=== PATIENT | male | born 1955 | race Caucasian/White ===

== ENCOUNTER → 2019-10-29 14:07 | Outpatient (CLI) | payer OTHER, SELFPAY ==
--- NOTE | 2019-10-29 14:26 | DI.CT.S_ITS ---
PROCEDURE: CT SINUS SCREEN WO CON INDICATIONS: Chronic sinusitis, unspecified TECHNIQUE: Noncontrast 3.0 mm axial images acquired from the frontal sinuses to the mid-sella, with coronal and sagittal reformats. For radiation dose reduction, the following was used: automated exposure control, adjustment of mA and/or kV according to patient size. COMPARISON: None. FINDINGS: Image quality: Excellent. Sinuses: Surgical changes reflecting previous maxillary antrectomy are noted. There is bilateral mild maxillary and scattered ethmoid mucosal thickening. Minimal to mild bilateral sphenoid as well as mild frontal sinus mucosal thickening is present. Miscellaneous: Visualized intra-orbital contents are normal. No cristino bullosa or paradoxical turbinate curvature. Middle turbinates have been removed. No nasal septal deviation. IMPRESSION: 1. Postsurgical sinus surgery with minimal to mild irwin sinus mucosal thickening as above. No fluid levels are identified. Dictated by: Pam Schaffer M.D. on 10/29/2019 at 17:29 Approved by: Pam Schaffer M.D. on 10/29/2019 at 17:30
== END ==
PROVIDERS: PCP Student in an Organized Health Care Education/Training Program; Visit Provider Student in an Organized Health Care Education/Training Program
DX: J32.8 Other chronic sinusitis (principal)
CPT/HCPCS: 70486

== ENCOUNTER 2020-08-08 09:59 | Inpatient (IN) | payer OTHER, SELFPAY ==
[2020-08-08] VITALS (12 sets, daily range): BP systolic 118–185; BP diastolic 73–105; PULSE 38–53; RESP 12–23; TEMP 36.1–37; O2SAT 93–100; BMI 25.2; BMI 25.0
--- NOTE | 2020-08-08 | DI.US.S_ITS ---
PROCEDURE: US CAROTID DOPPLER BI INDICATIONS: ACUTE CVA, LEFT HEMIANOPSIA TECHNIQUE: Color and pulse Doppler interrogation was performed of both carotid systems, with image documentation and velocity measurements. COMPARISON: None. FINDINGS: Stenosis calculations are based on SRU (Society of Radiologists in Ultrasound) criteria. Right side: Brachial blood pressure: 137/92 mm Hg. Common carotid artery peak systolic velocity: 79 cm/sec. Internal carotid artery peak systolic velocity: 59 cm/sec. Internal carotid artery end diastolic velocity: 22 cm/sec. External carotid artery peak systolic velocity: 60 cm/sec. ICA/CCA peak systolic ratio: 0.7. Mcmillan scale imaging description: Mild atherosclerotic plaque at the right carotid bulb. Percent internal carotid artery stenosis: No significant stenosis. Vertebral artery: Flow direction is antegrade. Left side: Brachial blood pressure: 136/85 mm Hg. Common carotid artery peak systolic velocity: 90 cm/sec. Internal carotid artery peak systolic velocity: 59 cm/sec. Internal carotid artery end diastolic velocity: 16 cm/sec. External carotid artery peak systolic velocity: 66 cm/sec. ICA/CCA peak systolic ratio: 0.7. Mcmillan scale imaging description: No significant atherosclerotic plaque. Percent internal carotid artery stenosis: No significant stenosis. Vertebral artery: Flow direction is antegrade. IMPRESSION: No hemodynamically significant stenosis. Very mild atherosclerotic plaque at the right carotid bulb. Dictated by: Fletcher Toussaint M.D. on 08/08/2020 at 17:20 Approved by: Fletcher Toussaint M.D. on 08/08/2020 at 17:23
--- NOTE | 2020-08-08 | DI.ECHO.S_ITS ---
[facility] +---------+ : : [address] : : : : [id number] : : : : Phone: [phone] Echocardiogram Report + + :Name: PAKO BURTON Study Date: 08/08/2020 Height: 70 in : :[facility] Weight: 176 lb : : Gender: Male BSA: 2.0 m2 : :: 1955 Age: 65 yrs BP: 148/95 mmHg: :Reason For Study: CVA : : Performed By: Shan Almanza : :Referring: NIDIA STRINGER : + + Interpretation Summary 1) Normal left ventricular size, thickness, wall motion, and systolic function (EF 60-65%). 2) Normal right ventricular size and function. 3) No significant valvular abnormalities. 4) Injection of contrast documented an interatrial shunt. 5) No prior Echo available for comparison. Procedure: A two-dimensional transthoracic echocardiogram with color flow and Doppler was performed. The study quality was technically good. There is no prior echocardiogram noted for this patient. A saline contrast injection was performed to assess for cardiac shunting. The patient was in normal sinus rhythm during the exam. Left Ventricle: The left ventricle is normal in size. There is normal left ventricular wall thickness. The ejection fraction is estimated to be 60-65%. There are no focal wall motion abnormalities. Right Ventricle: The right ventricle is normal in size and function. Atria: The left atrium is moderately dilated. Right atrial size is normal. Injection of contrast documented an interatrial shunt. Mitral Valve: The mitral valve is normal. There is trace mitral regurgitation. Aortic Valve: The aortic valve is trileaflet. The aortic valve opens well. There is no aortic valve stenosis. No aortic regurgitation is present. Tricuspid Valve: The tricuspid valve is normal in structure and function. There is trace tricuspid regurgitation. The right ventricular systolic pressure is estimated to be at least 20 mmHg based on an estimated right atrial pressure of 3 mm Hg. Pulmonic Valve: The pulmonic valve is normal in structure and function. There is trace pulmonic regurgitation. Great Vessels: The aortic root is normal size. The dimensions of the ascending aorta are normal. The pulmonary artery is normal size. The IVC is of normal diameter and collapses greater than 50% with a sniff. This suggests a low right atrial pressure of 3 mm Hg. Pericardium/ Pleura There is no pericardial effusion. There is no pleural effusion. MMode/2D Measurements & Calculations LVIDd: 5.1 cm LVOT diam: 2.3 cm LVIDs: 2.9 cm Ao root diam: 3.6 cm FS: 42.4 % asc Aorta Diam: 3.3 cm EPSS: 0.75 cm Ao Arch Diam (Prox Trans): 3.1 cm IVSd: 0.90 cm LVPWd: 0.77 cm LV aranda. diameter/BSA (cm/m^2): 2.6 LV sys. diameter/BSA (cm/m^2): 1.5 LA dimension: 3.4 cm RA long axis: 4.6 cm LA A2 area: 22.6 cm2 RA area: 14.2 cm2 LA A4 area: 19.4 cm2 RA vol: 37.2 ml LA length (vol): 5.3 cm RA : 18.8 ml/m2 LA vol: 70.2 ml IVC diam: 0.96 cm LA vol index: 35.5 ml/m2 TAPSE: 2.0 cm Doppler Measurements & Calculations Ao V2 max: 152.1 cm/sec LVOT Max Vicente: 94.1 cm/sec Ao V2 mean: 114.8 cm/sec LV V1 max P.5 mmHg Ao max P.3 mmHg LV V1 VTI: 20.6 cm Ao mean P.6 mmHg RICKY(I,D): 2.6 cm2 Ao V2 VTI: 34.5 cm RICKY(V,D): 2.7 cm2 sev ratio: 0.60 RICKY indexed to BSA (cm^2/m^2): 1.3 MV E max vicente: 42.7 cm/sec TR max vicente: 207.0 cm/sec MV A max vicente: 60.7 cm/sec TR max P.1 mmHg MV E/A: 0.70 PA V2 max: 81.9 cm/sec Med Peak E' Vicente: 5.2 cm/sec PA V2 mean: 59.9 cm/sec E/E' med: 8.3 PA mean P.6 mmHg Lat Peak E' Vicente: 7.9 cm/sec PA pr(Accel): 8.8 mmHg E/E' lat: 5.4 E/e' average: 6.8 MV dec time: 0.29 sec SV(LVOT): 88.2 ml Reading Physician:05:14 PM
--- NOTE | 2020-08-08 10:08 | DI.CT.S_ITS ---
PROCEDURE: CT HEAD/BRAIN WO CON INDICATIONS: left visual changes yesterday TECHNIQUE: Noncontrast 4.5 mm thick angled axial sections acquired from the foramen magnum to the vertex, with coronal and sagittal reformats. For radiation dose reduction, the following was used: automated exposure control, adjustment of mA and/or kV according to patient size. COMPARISON: [facility], CT, CT SINUS SCREEN WO CON, 10/29/2019, 14:15. FINDINGS: Image quality: Excellent. CSF spaces: Basal cisterns are patent. No extra-axial fluid collections. The ventricles are symmetric in size and shape. Brain: Decreased attenuation is seen involving lateral aspect of the right frontal parietal region, as on series 4, image 20. No intracranial bleeds or masses. There is cerebral volume loss for age, with resultant ventricular and sulcal prominence. There are periventricular and deep white matter chronic small vessel ischemic changes. There is intracranial internal carotid artery atherosclerosis. Skull and face: Calvarium and visualized facial bones appear intact, without suspicious lesions. Sinuses: Visualized sinuses and mastoids are clear. IMPRESSION: Decreased brain attenuation is seen involving right frontotemporal region, which is likely related to the patient's presenting symptoms. No acute hemorrhage is seen. If it would be helpful for clinical management decision making, please consider a dedicated brain MRI for further evaluation (assuming that there is no contraindication). Dictated by: Sadiq Chu M.D. on 08/08/2020 at 9:22 Approved by: Sadiq Chu M.D. on 08/08/2020 at 9:26
--- NOTE | 2020-08-08 10:08 | DI.CT.S_ITS ---
PROCEDURE: CT ANGIO HEAD AND NECK INDICATIONS: left visual changes TECHNIQUE: Pre-contrast 4.5 mm thick sections acquired from the foramen magnum to the vertex. After the administration of intravenous contrast, 1 mm thick sections acquired from the aortic arch through the [place]. Post-contrast 4.5 mm thick sections then re-acquired from the foramen magnum to the vertex. 3-dimensional guhoxkq-xyljmggty-crfysqbdxt (MIP) and/or volume rendering reformats were acquired of the central intracranial vasculature and neck separately. COMPARISON: [facility], CT, CT HEAD/BRAIN WO CON, 08/08/2020, 10:11. [facility], CT, CT SINUS SCREEN WO CON, 10/29/2019, 14:15. FINDINGS: Image quality: Excellent. BRAIN: CSF spaces: Ventricles are normal in size and shape. Basal cisterns are patent. No extra-axial fluid collections. Brain: No midline shift. No intracranial bleeds or masses. Mcmillan-white matter interface appears intact. Skull and face: Calvarium and facial bones appear intact, without suspicious lesions. Orbits appear normal. Sinuses: Sinuses and mastoids are clear. HEAD CT ANGIOGRAPHY: Anterior circulation: Intracranial internal carotid arteries are normal in size and flow. There is a hypoplastic left A1 segment, with a corresponding robust right A1 segment. This is considered to be a normal developmental variant of the [place], of typically no clinical consequence. The flow within the paired anterior cerebral arteries is otherwise normal and symmetric. The flow within the middle cerebral arteries is normal and symmetric. The anterior communicating artery is seen. No aneurysms are seen. Posterior circulation: Visualized portions of the vertebral arteries demonstrate normal caliber, and join to form a normal appearing basilar artery. Flow within the posterior cerebral arteries is normal and symmetric. No aneurysms are seen. NECK CT ANGIOGRAPHY: Carotid system: The great vessels demonstrate a conventional anatomy as they arise from the aortic arch. The origins of the common carotid arteries appear patent. The common carotid arteries demonstrate normal caliber and courses. The bifurcation regions are both widely patent. The internal carotid arteries demonstrate normal calibers and courses. Posterior circulation: The origins of the vertebral arteries both appear widely patent. The more superior extracranial portions of both vertebral arteries also demonstrate normal courses and calibers. They join to form a normal appearing basilar artery. Soft tissues: Visualized neck soft tissues demonstrate no suspicious abnormalities. Bones: No suspicious bony lesions. Visualized cervical spine appears normally aligned. Degenerative changes are seen, with moderate disc space narrowing at C5-C6 and C6-C7. Endplate irregularity and sclerosis are seen, which are most prominent at C5-C6. IMPRESSION: No significant intracranial arterial abnormality is seen. Within the arteries of the neck, no hemodynamically significant stenosis can be seen. Incidental note is made of: Hypoplastic left A1 segment Lower cervical degenerative change Any quantitative measurements of stenosis were performed using NASCET criteria. Dictated by: Sadiq Chu M.D. on 08/08/2020 at 9:34 Approved by: Sadiq Chu M.D. on 08/08/2020 at 9:37
--- NOTE | 2020-08-08 10:19 | PC.NURSE ---
Patient states he was lifting weights at 0900 yesterday morning when he had a sudden loss of vision in both eyes. Made an appointment with eye doctors today and sent to ER. Visual field loss in left peripheral remains. Patient states he feels slightly dizzy.
--- NOTE | 2020-08-08 10:29 | ED.NEUROSD ---
HPI - Neuro Symptoms/Deficit General Chief Complaint: Neuro Symptoms/Deficit Stated Complaint: SENT FROM [facility] PER PHYS Time Seen by Provider: 08/08/20 10:08 Source: patient Mode of arrival: Ambulatory Limitations: no limitations History of Present Illness HPI Narrative: Patient is a 65-year-old healthy male who presents from the eye doctor after he lost vision in his left eye yesterday at 9:00 a.m.. He said he was bench pressing when he thought he was getting a migraine headache and then noticed she had some visual changes. He could not get the pain in the holes of the weights because he could not see. He then drove himself home. He had increased headache over the night and took Excedrin migraine without any relief. He still had visual disturbance in his left eye this morning was seen briefly at that restaurant line server who diagnosed him with complete left heminiopsia. He says he may have had some weakness in his left hand but that seems to have improved. He has no numbness or tingling no facial droop worse speech disturbances. Onset (ago): hour(s) (24) Location: other (Left eye) History of same: No On Anticoagulants: No Associated symptoms: headaches Related Data Home Medications Medication Instructions Recorded Confirmed No Known Home Medications 08/08/20 08/08/20 Allergies Allergy/AdvReac Type Severity Reaction Status Date / Time No Known Drug Allergies Allergy Verified 08/08/20 10:07 Review of Systems Review of Systems ROS Unobtainable: All systems reviewed & are unremarkable except as noted in HPI and below Constitutional Constitutional: Denies chills, Denies fever(s), Reports headache(s), Denies lethargy and Denies weakness Eyes Eyes: Reports as per HPI ENT Ears, Nose, Mouth, and Throat: Denies change in voice, Reports headache(s), Denies neck pain and Denies sore throat Cardiovascular Cardiovascular: Denies chest pain, Denies irregular heart rhythm, Denies lightheadedness, Denies palpitations, Denies dyspnea, Denies dyspnea on exertion and Denies orthopnea Respiratory Respiratory: Denies cough, Denies dyspnea, Denies dyspnea on exertion and Denies wheezing Gastrointestinal Gastrointestinal: Denies abdominal pain, Denies change in bowel habits, Denies diarrhea, Denies nausea and Denies vomiting Musculoskeletal Musculoskeletal: Denies back pain and Denies neck pain Integumentary/Breasts Skin/Breast: Denies pruritus, Denies erythema, Denies rash and Denies wounds Neurologic Neurologic: Reports as per HPI, Reports headache(s) and Denies weakness Endocrine Endocrine: Denies palpitations Allergic/Immunologic Allergic/Immunologic: Denies wheezing Patient History Medical History Patient denies medical problems (Acute) Social History household members: significant other Smoking Status: Never smoker Smoking Status: Never smoker Substance Use Type: does not use Exam Initial Vital Signs Initial Vital Signs: Vital Signs Temperature 97.0 F L 08/08/20 10:04 Pulse Rate 52 L 08/08/20 10:04 Respiratory Rate 12 08/08/20 10:04 Blood Pressure 176/105 H 08/08/20 10:04 Pulse Oximetry 99 08/08/20 10:04 GENERAL: Well-appearing, well-nourished and in no acute distress. HEENT: Head atraumatic,EOMI, pupils reactive, face symmetric, EYES: Visual loss of left peripheral field both upper and lower CARDIOVASCULAR: Regular rate and rhythm without murmurs, rubs or gallops. RESPIRATORY: Breath sounds equal bilaterally, no wheezes rales or rhonchi. ABDOMEN: Soft, nontender. Normoactive bowel sounds all 4 quadrants. No guarding or rebound. EXTREMITIES: Normal range of motion, no clubbing or edema. Neurovascularly intact NEUROLOGICAL: Alert and oriented x4.Normal gait and speech. Cranial nerves II through XII grossly intact. Good ihpfxz-pr-medn, good jwao-ei-stbn, strength equal bilaterally, no dysarthria or aphasia, sensation in tact to soft touch bilaterally, no visual changes, no facial droop SKIN: Warm, dry, no laceration, no petechiae, no rashes or lesions. Scores NIH Stroke Scale Level of Conciousness: Alert, keenly responsive Ask month/age: Answers both questions correctly. Open/close eyes, close hand: Performs both tasks correctly Best gaze horizontal: Normal Visual rowell: Complete hemianopia Facial palsy: Normal symetrical movement Left arm drift: No drift for full 10 sec Right arm drift: No drift for full 10 sec Left leg drift: No drift for full 5 sec Right leg drift: No drift for full 5 sec Limb ataxia: Absent Sensory on face/arms/legs: Normal, no sensory loss Best language: No aphasia, normal Dysarthria: Normal Extinction or inattention: No abnormality Total NIH Stroke scale score: 2 Course Orders Ordered: ED Orders 08/08/20 10:05 Complete Blood Count AUTO DIFF Stat Comprehensive Metabolic Panel Stat Partial Thromboplastin Time Stat Prothrombin Time INR Stat Troponin & CK Cardiac Panel Stat 08/08/20 10:08 CT angio head and neck Stat CT head/brain wo con Stat 08/08/20 10:10 Urine Drug Screen, Rapid Stat EKG-12 Lead Stat 08/08/20 11:07 MR stroke Urgent Acetaminophen (Tylenol) 650 mg PO Q6HR PRN PRN Reason: Fever Last Admin: 08/08/20 13:05 Dose: 650 mg Documented by: SAV Aspirin (Aspirin Ec) 325 mg PO DAILY [facility] Atorvastatin Calcium (Lipitor) 80 mg PO BEDTIME [facility] Calcium Carbonate (Tums) 1,000 mg PO Q4HR PRN PRN Reason: Dyspepsia Enoxaparin Sodium (Lovenox) 40 mg SUBCUT DAILY [facility] Labetalol HCl (Trandate) 10 mg IV Q4HR PRN PRN Reason: hypertension Ondansetron HCl (Zofran) 4 mg IV Q8HR PRN PRN Reason: Nausea And Vomiting Sodium Chloride (Normal Saline 0.9% Flush) 10 ml IV PRN PRN PRN Reason: Flush Sodium Chloride (Normal Saline 0.9% Flush) 10 ml IV BID [facility] Discontinued Medications Aspirin (Aspirin Chew) 324 mg PO NOW ONE Stop: 08/08/20 10:48 Last Admin: 08/08/20 10:59 Dose: 324 mg Documented by: GRECIA Vital Signs Vital signs: Vital Signs - 8 hr 08/08/20 10:04 08/08/20 10:05 08/08/20 10:09 Temperature 97.0 F L 98.6 F Pulse Rate 52 L 53 L Respiratory Rate 12 17 Blood Pressure 176/105 H 176/105 H Pulse Oximetry 99 99 08/08/20 10:33 08/08/20 10:36 08/08/20 11:00 Temperature Pulse Rate 46 L 49 L Respiratory Rate 13 23 Blood Pressure 185/91 H Pulse Oximetry 93 100 100 09/18/20 11:01 Temperature Pulse Rate 48 L Respiratory Rate 22 Blood Pressure 164/103 H Pulse Oximetry 100 MDM - Neuro Symptoms/Deficit Lab Data Attestation: I reviewed the patient's lab results. Result diagrams: 08/08/20 10:05 08/08/20 10:05 Labs: Lab Results 08/08/20 08/08/20 08/08/20 Range/Units 10:05 10:05 10:05 WBC 6.6 (4.5-11.0) X10^3/uL RBC 4.99 (4.5-5.9) X10^6/uL Hgb 16.2 (13.5-17.5) g/dL Hct 47.4 (41-53) % MCV 95.0 (80-100) fL MCH 32.4 (26-34) PG MCHC 34.2 (30-36) % RDW 13.2 (11.6-14.8) % Plt Count 229 (150-400) X10^3/uL Neut % (Auto) 50.6 (50-75) % Lymph % (Auto) 34.3 (25-40) % [place] % (Auto) 10.8 (3-14) % Eos % (Auto) 3.8 (2-4) % Baso % (Auto) 0.5 (0-2) % Neut # (Auto) 3300 (5561-4577) /uL Lymph # (Auto) 2300 (7483-0900) /uL [place] # (Auto) 700 (0-900) /uL Eos # (Auto) 300 (0-450) /uL Baso # (Auto) 0 (0-100) /uL PT 11.0 (10.1-12.7) SECONDS INR 1.0 (0.9-1.3) APTT 31 (26.4-36.2) SECONDS Sodium 137 (137-145) mmol/L Potassium 4.2 (3.4-5.1) mmol/L Chloride 103 (98-107) mmol/L Carbon Dioxide 26 (22-32) mmol/L BUN 15 (9-20) mg/dL Creatinine 1.08 (0.66-1.25) mg/dL Estimated GFR > 60.0 (>60) mL/min BUN/Creatinine Ratio 13.9 (6-22) Glucose 95 (80-110) mg/dL Calcium 9.6 (8.4-10.2) mg/dL Total Bilirubin 1.0 (0.2-1.3) mg/dL AST 40 (17-59) IU/L ALT 28 (<50) IU/L Alkaline Phosphatase 59 (38-126) U/L Total Creatine Kinase 87 (55-170) U/L CK-MB (CK-2) TNP CK-MB (CK-2) Rel Index TNP Troponin I < 0.012 (0.01-0.034) ng/mL Total Protein 7.6 (6.3-8.2) g/dL Albumin 4.4 (3.5-5.0) g/dL Globulin 3.2 (1.7-4.1) g/dL Albumin/Globulin Ratio 1.4 (1.0-2.8) Urine Dip Bedside Urine Glucose Negative Bedside Urine Bilirubin - Negative Bedside Urine Ketone - Negative Urine Specific [place] 1.010 Bedside Urine Occult Blood - Negative Bedside Urine pH 6.5 Bedside Urine Protein - Negative Bedside Urine Urobilinogen - Negative Bedside Urine Nitrite - Negative Bedside Urine Leukocytes - Negative Esterase Imaging Data CT scan - head: Radiologist's Impression: PROCEDURE: CT HEAD/BRAIN WO CON INDICATIONS: left visual changes yesterday TECHNIQUE: Noncontrast 4.5 mm thick angled axial sections acquired from the foramen magnum to the vertex, with coronal and sagittal reformats. For radiation dose reduction, the following was used: automated exposure control, adjustment of mA and/or kV according to patient size. COMPARISON: [facility], CT, CT SINUS SCREEN WO CON, 10/29/2019, 14:15. FINDINGS: Image quality: Excellent. CSF spaces: Basal cisterns are patent. No extra-axial fluid collections. The ventricles are symmetric in size and shape. Brain: Decreased attenuation is seen involving lateral aspect of the right frontal parietal region, as on series 4, image 20. No intracranial bleeds or masses. There is cerebral volume loss for age, with resultant ventricular and sulcal prominence. There are periventricular and deep white matter chronic small vessel ischemic changes. There is intracranial internal carotid artery atherosclerosis. Skull and face: Calvarium and visualized facial bones appear intact, without suspicious lesions. Sinuses: Visualized sinuses and mastoids are clear. IMPRESSION: Decreased brain attenuation is seen involving right frontotemporal region, which is likely related to the patient's presenting symptoms. No acute hemorrhage is seen. If it would be helpful for clinical management decision making, please consider a dedicated brain MRI for further evaluation (assuming that there is no contraindication). Dictated by: Sadiq Chu M.D. on 08/08/2020 at 9:22 ECG Data Attestation: I personally reviewed and interpreted this ECG as follows: Interpretation: Normal sinus rhythm rate 49 p.r. interval 154 QRS [address] changes MDM Narrative Medical decision making narrative: Patient is out of window clearly for tPA and any intervention. He does not have large vessel occlusion on CTA, and the window has closed on that as well. He is given aspirin. I Updated on patient's symptoms test results agrees with admission. Discharge Plan Departure Patient Disposition: Admitted As Inpatient Clinical Impression: Cerebrovascular accident Qualifiers: CVA mechanism: other Qualified Code(s): I63.89 - Other cerebral infarction Discharge Date/Time: 08/08/20 11:48 Referrals: Virgie Patel MD [Primary Care Provider] - Admit Date/Time: 08/08/20 11:22 Admit Provider: Virgie Patel
[2020-08-08 10:35] LABS: Add Manual Diff / Slide Review NO; Basophils Absolute Auto 0 /uL (0-100); Basophils Percent Auto 0.5 % (0-2); Eosinophils Absolute Auto 300 /uL (0-450); Eosinophils Percent Auto 3.8 % (2-4); Hematocrit 47.4 % (41-53); Hemoglobin 16.2 g/dL (13.5-17.5); Lymphocytes Absolute Auto 2300 /uL (1100-4500); Lymphocytes Percent Auto 34.3 % (25-40); Mean Corpuscular HGB Conc 34.2 % (30-36); Mean Corpuscular Hemoglobin 32.4 PG (26-34); Monocytes Absolute Auto 700 /uL (0-900); Monocytes Percent Auto 10.8 % (3-14); Neutrophils Absolute Auto 3300 /uL (1500-7000); Neutrophils Percent Auto 50.6 % (50-75); PTT Partial Thromboplastin Tim 31 SECONDS (26.4-36.2); Platelet Count 229 X10^3/uL (150-400); Red Blood Cell Count 4.99 X10^6/uL (4.5-5.9); Red Cell Distribution Width 13.2 % (11.6-14.8); White Blood Cell Count 6.6 X10^3/uL (4.5-11.0)
[2020-08-08 10:36] LABS: Alanine Aminotransferase 28 IU/L (<50); Albumin 4.4 g/dL (3.5-5.0); Albumin Globulin Ratio 1.4 (1.0-2.8); Alkaline Phosphatase 59 U/L (38-126); Aspartate Aminotransferase 40 IU/L (17-59); BUN Creatinine Ratio 13.9 (6-22); Blood Urea Nitrogen 15 mg/dL (9-20); Calcium 9.6 mg/dL (8.4-10.2); Carbon Dioxide 26 mmol/L (22-32); Chloride 103 mmol/L (98-107); Creatine Kinase 87 U/L (55-170); Estimated Glomerular Filt Rate > 60.0 mL/min (>60); Globulin 3.2 g/dL (1.7-4.1); Glucose 95 mg/dL (80-110); HEMOLYSIS 19 (0-50); Potassium 4.2 mmol/L (3.4-5.1); Sodium 137 mmol/L (137-145); Total Protein 7.6 g/dL (6.3-8.2)
[2020-08-08 10:47] LABS: Troponin I < 0.012 ng/mL (0.01-0.034)
[2020-08-08] MEDS: ASPIRIN 81 MG CHEW TAB 324 MG PO (10:59)
--- NOTE | 2020-08-08 11:07 | DI.MRI.S_ITS ---
PROCEDURE: MR STROKE Pre- and post-contrast brain MRI, non-contrast brain MR angiogram, pre- and postcontrast neck MR angiogram INDICATIONS: cva TECHNIQUE: Brain: Noncontrast axial T1 spin echo, axial T2 fast spin echo, sagittal and axial FLAIR, coronal T2 fast spin echo, axial gradient echo, axial diffusion and ADC through the brain. After the administration of contrast, axial 3D VIBE of the cranial vasculature and brain. Brain MRA: Non-contrast 3-D time of flight MR angiogram, with multiple bivzyye-jjbritsxh-ugyappyvil (MIP) reformats performed. Neck MRA: Axial and sagittal TruFISP through the neck. Coronal dynamic MR angiogram during administration of contrast in the arterial and venous phases, with 3-dimenstional vwvswye-anceeoruq-uqzajpbmvr (MIP) reformats constructed from subtraction images. COMPARISON: [facility], CT, CT ANGIO HEAD AND NECK, 08/08/2020, 10:11. [facility], CT, CT HEAD/BRAIN WO CON, 08/08/2020, 10:11. FINDINGS: Image quality: Excellent. BRAIN: CSF spaces: Ventricles are normal in size and shape. Basal cisterns are patent. No extra-axial fluid collections. Brain: No intracranial bleeds or mass effects. Mcmillan-white matter interface is normal. Diffusion weighted images demonstrate a 30 mm diameter focus of elevated signal intensity within the right temporoparietal lobe, which demonstrates low ADC map signal. There is a small chronic infarct within the left temporal occipital lobe measuring roughly a 17 mm. Mild diffuse cerebral volume loss. Minimal degree of patchy high FLAIR signal within the periventricular and subcortical white matter. Brainstem appears normal. Normal intravascular flow voids are present. No abnormal intracranial enhancement. Skull and face: Calvarial marrow signal is normal. Orbits appear normal. Sinuses: Mild bilateral maxillary sinus mucosal thickening. BRAIN MR ANGIOGRAM: Anterior circulation: Intracranial internal carotid arteries are normal in size and enhancement. Hypoplastic left A1 segment, as before. The flow within the paired anterior cerebral arteries is otherwise normal and symmetric. The flow within the middle cerebral arteries is normal and symmetric. The anterior communicating artery is seen. No stenoses, occlusions, or aneurysms. Posterior circulation: The visualized portions of the vertebral arteries demonstrate normal caliber, and join to form a normal appearing basilar artery. The flow within the posterior cerebral arteries is normal and symmetric. No stenoses, occlusions, or aneurysms. NECK MR ANGIOGRAM: Carotids: Great vessels demonstrate a conventional anatomy as they arise from the aortic arch. The origins of the common carotid arteries appear patent. The calibers and courses of both common carotid arteries are normal. The bifurcation regions appear normal bilaterally. The internal carotid arteries demonstrate normal course and caliber. Posterior circulation: The origins of the vertebral arteries appear patent. More superior portions of both vertebral arteries demonstrate normal course and caliber, and join to form a normal appearing basilar artery. Miscellaneous: Subclavian arteries appear patent. Pre-contrast images through the neck show no soft tissue abnormalities. IMPRESSION: BRAIN MRI: 1. Subacute right temporal parietal lobe infarct, as seen by CT examination dated 08/08/2020 at 10:10 hours.. 2. Mild volume loss and small vessel ischemic disease. BRAIN MR ANGIOGRAM: Allowing for differences in modality, no significant change in normal evaluation of the intracranial vasculature compared to CTA examination dated 08/08/2020 at 10:10 hours. NECK MR ANGIOGRAM: Allowing for differences in modality, no significant change in normal evaluation of the arterial vasculature of the neck compared to CTA examination dated 08/08/2020 at 10:10 hours. Dictated by: Mata Marcos M.D. on 08/08/2020 at 15:36 Approved by: Mata Marcos M.D. on 08/08/2020 at 15:42
--- NOTE | 2020-08-08 12:17 | PM.HP.1 ---
History of Present Illness History of Present Illness Date Patient Seen: 08/08/20 Time Patient Seen: 12:17 Chief complaint: SENT FROM [facility] PER PHYS Narrative: 65-year-old healthy right handed male is admitted from the ED secondary to acute CVA. Was sent directly to ED after visiting his eye doctor this morning where he had reported lost vision in his left eye times 24 hours. Visual loss occurred at 9:00 a.m. on 08/07/20. At that time, he was bench pressing and thought that he had a migraine headache, 3/10. He noticed that he could not see the hole where the pin for the weight needs to go, so he abandoned his workout and drove home. On his way to the bathroom, dropped his water bottle being held in his left hand 3 times. Headache worsened over night, 8/10, and he took Excedrin migraine with no relief. When he awoke this morning with persistent visual disturbances, he called his health and physical education teacher and was seen briefly prior to being sent here. He was diagnosed with complete left hemianopsia. Denies any associated symptoms and reports that the weakness in his left hand has resolved. Denies numbness, tingling, facial droop, or speech disturbances. He is not on anticoagulants. No history of CVA. Drinks 8-10 oz of [place] whiskey daily, has not had anything to drink for the last 2 days. In the last year, has started nicotine Zyn 6 mg patches bucally. No previous nicotine history. Workup in the ED significant for decreased brain attenuation in the right frontotemporal lobe. He was administered aspirin 325 mg x 1. He was outside the window of any other acute stroke medications. Notably, his complete lab workup with negative. His CT angiogram head/neck was unremarkable. NIH stroke scale 2. Vital signs were normal except for an elevated blood pressure of 176/105. His baseline blood pressure is 120-140/ 80-90, now 118/82 with a HR of 50. Baseline HR is 55-60. Past medical history: Hyperlipidemia Chronic sinusitis Erectile dysfunction Actinic keratosis History of closed head injury, 2018 Alcohol dependence Tobacco use, buccal Past surgical history: Sinus surgery Broken scapula repair, left Hemorrhoidectomy x3 Family history: Father: Hyperlipidemia, prostate cancer, lung cancer, at age 71 Mother: Lung issues, and at age 91 Brother: at 56 from liver cancer Social history: , lives at home with Kristine. Retired physical therapist, now enjoys boating. Patient History Medical History Patient denies medical problems (Acute) Family & Social History Safety & Behavioral: Feels Safe in Current Yes Environment Been Physically Hurt or No Threatened By a Person Tobacco & Substance use: Smoking Status Never smoker Substance Use Type does not use Meds Home Medications and Allergies Home Medications Medication Instructions Recorded Confirmed Type No Known Home Medications 08/08/20 08/08/20 History Allergies Allergy/AdvReac Type Severity Reaction Status Date / Time No Known Drug Allergies Allergy Verified 08/08/20 10:07 Review of Systems Review of Systems ROS: Yes All systems reviewed with the patient and are negative except as otherwise documented Exam Vital Signs (past 8 hours): - 08/08/20 10:04 08/08/20 10:05 08/08/20 10:09 Temperature 97.0 F L 98.6 F Pulse Rate 52 L 53 L Respiratory Rate 12 17 Blood Pressure 176/105 H 176/105 H Pulse Oximetry 99 99 08/08/20 10:33 08/08/20 10:36 08/08/20 11:00 Temperature Pulse Rate 46 L 49 L Respiratory Rate 13 23 Blood Pressure 185/91 H Pulse Oximetry 93 100 100 08/08/20 11:01 08/08/20 11:30 08/08/20 12:03 Temperature 97.3 F L Pulse Rate 48 L 42 L 44 L Respiratory Rate 22 16 14 Blood Pressure 164/103 H 148/95 H Pulse Oximetry 100 98 99 Oxygen Delivery Method Room Air Narrative Exam Narrative: GENERAL: Alert and oriented, appearing stated age and in no acute distress. HEENT: Head normocephalic/atraumatic. Pupils equal, round, and reactive to light and accomodation. Extraocular muscles intact. Visual loss of peripheral rowell, upper and lower. Tympanic membranes clear. Nasal mucosa moist, septum midline. Oral mucosa moist, no lesions. Neck soft and supple, no lymphadenopathy. LUNGS: Clear to ausculation bilaterally, no wheezes, rhonchi or rales. CV: Normal S1 and S2 with regular rate and rhythm, no audible murmurs, rubs or gallops. ABDOMEN: Soft, non-tender, non-distended, no organomegaly. Positive bowel sounds. EXTREMITIES: No clubbing, cyanosis, or edema. NEURO: Cranial nerves II through XII grossly intact, no focal deficits. Normal fpomue-yt-iqeg, omxg-qc-yhdj. Speech normal. Strength 5/5 bilaterally. No dysarthria or aphasia. Sensation intact to soft touch bilaterally. No facial droop SKIN: Warm, dry, no laceration, no petechiae, no rashes or lesions. PSYCH: Alert and oriented x 3. SKIN: No concerning lesions. Objective Labs Result Diagrams: 08/08/20 10:05 08/08/20 10:05 Labs: Laboratory Results - last 24 hr 08/08/20 08/08/20 08/08/20 10:05 10:05 10:05 WBC 6.6 RBC 4.99 Hgb 16.2 Hct 47.4 MCV 95.0 MCH 32.4 MCHC 34.2 RDW 13.2 Plt Count 229 Neut % (Auto) 50.6 Lymph % (Auto) 34.3 [place] % (Auto) 10.8 Eos % (Auto) 3.8 Baso % (Auto) 0.5 Neut # (Auto) 3300 Lymph # (Auto) 2300 [place] # (Auto) 700 Eos # (Auto) 300 Baso # (Auto) 0 PT 11.0 INR 1.0 APTT 31 Sodium 137 Potassium 4.2 Chloride 103 Carbon Dioxide 26 BUN 15 Creatinine 1.08 Estimated GFR > 60.0 BUN/Creatinine Ratio 13.9 Glucose 95 Calcium 9.6 Total Bilirubin 1.0 AST 40 ALT 28 Alkaline Phosphatase 59 Total Creatine Kinase 87 CK-MB (CK-2) TNP CK-MB (CK-2) Rel Index TNP Troponin I < 0.012 Total Protein 7.6 Albumin 4.4 Globulin 3.2 Albumin/Globulin Ratio 1.4 Assessment & Plan Assessment & Plan narrative: 1. Right frontotemporal CVA, acute PLAN: Brain MRI to better clarify type of lesion as well as echo and carotid duplex US. No acute hemorrhage seen at this point. Will continue ASA 325 mg PO qd and start atorvastatin [address]/PT/OT to consult. Will keep blood sugar between 60-180, with goal between 140-180, baseline A1c. Serial labs including CBC, BMP, and d-dimer. 2. Hypertension, new -Baseline 120-140/80s PLAN: Allowing for permissive hypertension (goal is <220/120) for now while awaiting MRI results. 3. Hyperlipidemia, chronic PLAN: Will start atorvastatin 80 mg p.o. q.h.s. as noted above. 4. Alcohol dependence PLAN: [facility] protocol. DVT prophylaxis: SCDs for now while awaiting MRI results to confirm ischemic stroke. If ischemic CVA confirmed, will plan on lovenox prophylaxis. Code: Full
[2020-08-08 12:46] LABS: COVID19 -Nasal RAPID Negative (Negative)
[2020-08-08] MEDS: ACETAMINOPHEN 325 MG TABLET 650 MG PO ×2 (13:05→18:12)
--- NOTE | 2020-08-08 13:25 | PC.NURSE ---
Patient to room, alert, oriented, speech and swallow WNL. C/o headache on right side of forehead and behind right eye, tylenol given. NIH 2 for left visual loss. Patient oriented to room and call light.
--- NOTE | 2020-08-08 14:33 | SLP.IPNOTE ---
Per nursing , pt's speech, swallow and cognition WNL. Will cancel order
--- NOTE | 2020-08-08 15:35 | PT.IIE ---
Medical History (Last Reviewed 08/08/20 @ 10:35 by Zenia Nielson DO) Patient denies medical problems (Acute) Physical Therapy Inpatient Evaluation/Re-Eval M1 PT/OT-IP Prior Functional Status Start: 08/08/20 17:29 Freq: NEEDED Status: Active Protocol: Document 08/08/20 15:35 AB (Rec: 08/08/20 17:51 AB [id number]) Medical Review Prior Functional Status Medical History Reviewed Yes Communication able to make needs known Mobility and Gait pt stated that he is independent with all mobilities and ambulation without AD; pt stated that he works out and can lift 115# weights Social History Household Members spouse Living Arrangements House Number of Floors (Floors) One Floor Number of Stairs To Enter/Railing? no steps to enter Home Environment Standard Height Toilet,Walk in Shower,Built-In Shower Seat Home Equipment Straight Cane M2 PT-IP Current Condition Start: 08/08/20 17:29 Freq: NEEDED Status: Active Protocol: Document 08/08/20 15:35 AB (Rec: 08/08/20 17:51 AB [id number]) Physical Therapy Current Condition Current Condition Evaluation Date 08/08/20 Treatment Diagnosis CVA; difficulty in walking Onset Date 08/08/20 M3 PT-IP Subjective Start: 08/08/20 17:29 Freq: NEEDED Status: Active Protocol: Document 08/08/20 15:35 AB (Rec: 08/08/20 17:51 AB [id number]) Subjective Physical Therapy Visit Type Type Initial Evaluation Visit Start Time 15:35 Visit Stop Time 15:53 Total Visit Minutes 18 Number of SALES AGENT FINANCIAL REPORT SERVICE Visits 0 Physical Therapy Visit Comments Patient Comments pt is agreeable to do PT Therapy Pain Assessment Pain When Pain Assessed At Rest Pain Present Pain Present Pain Reported Location headache Intensity 4 Scale Used Numeric (0 - 10) Pain Management Techniques Distraction,Modification of Treatment,Timing of Activity with Medications M4 PT-IP Mobility and Gait Start: 08/08/20 17:29 Freq: NEEDED Status: Active Protocol: Document 08/08/20 15:35 AB (Rec: 08/08/20 17:51 AB [id number]) PT-Bed Mobility Assessment Rolling Type of Rolling Roll to Left Level of Assist Independent Supine to Sit Supine to Sit Independent Sit to Supine Sit to Supine Independent PT-Transfer Assessment Sit to and From Stand Sit to and from Stand Standby Assistance Equipment Transfer Assistive Device Gait Belt Orthotic/Prosthetic Devices or Brace: No Comments Mobility Comments pt completed bed moblity independent. ambulated in room without AD SBA. pt stated that his vision is still off and has to move his eyes or head to see. completed tinetti balance assessment, sit to stand and one leg stance. pt went back to bed and positioned. Pt waiting for ECHO procedure. Gait Assessment Gait Gait Assistance Required: Standby Assistance Distance (Feet) 30 Able to Maintain Weight Bearing Status Yes During Gait Assistive Devices Assistive Device None,Gait Belt Orthotic/Prosthetic Devices or Brace: No Gait Deviations General Gait Pattern Within Normal Limits Factors Limiting Gait Function Factors Limiting Gait Function Decreased Activity Tolerance, Poor Balance PT-Balance Assessment Sitting Balance and Reactions Static Sitting Balance Ability Normal Dynamic Sitting Balance Ability Normal Standing Balance and Reactions Static Standing Balance Ability Good Dynamic Standing Balance Ability Good Device Used without AD Balance Tests Single Limb Standing on LLE: F+ on RLE: N Functional Assessments Functional Tests 5 Times Sit to Stand completed w/in 10 sec: G LE strength and low fall risk Tinetti Balance and Gait Assessment bal score: 16 gait score: 11/01 total score: 27/28 M5 PT-IP Objective Assessments Start: 08/08/20 17:29 Freq: NEEDED Status: Active Protocol: Document 08/08/20 15:35 AB (Rec: 08/08/20 17:51 AB [id number]) Orientation Orientation/Cognition Level of Alertness Alert Orientation Name,Age,Birthday,Month,Date, Year,Day of Week,Place, Situation Language Function Ability No Deficits Noted Safety Awareness Understands Safety Issues Memory Description No Deficits Noted Gross Range of Motion Lower Extremity ROM Assessment Within Functional Limits Strength Lower Extremity Strength Assessment Within Functional Limits Sensation Assessment Sensation Gross Sensation WNL Muscle Tone Muscle Tone WNL Yes M6 PT-IP Treatment Start: 08/08/20 17:29 Freq: NEEDED Status: Active Protocol: Document 08/08/20 15:35 AB (Rec: 08/08/20 17:51 AB [id number]) Physical Therapy Treatment Education Education Provided Safety M7 PT-IP Assessment and Plan Start: 08/08/20 17:29 Freq: NEEDED Status: Active Protocol: Document 08/08/20 15:35 AB (Rec: 09/18/20 17:51 AB [id number]) PT Summary Assessment and Plan Potential Rehabilitation Potential Good Status of Condition at Evaluation Stable Summary Impairments Pain,Balance,Coordination, Transfers,Gait,Activity Tolerance Assessment Summary pt requiring SBA with transfer and ambulation without AD more so for safety due to decrease vision. Will continue to assess pt's mobility next tx session for long distance ambulation and stair climbing. Goals Transfer Goal Independent Gait Goal Independent Gait Distance 300 Other Goals up/down 6 steps without rails SBA Dynamic Gait indes: goal of -24/ score Days to Meet Goals 3 Frequency of Treatment Frequency Of Treatment Once a Day Treatment Plan Physical Therapy Treatment Plan Transfer Training,Gait Training,Therapeutic Exercise, Balance Retraining,Discharge Planning,Neuromuscular Re-ed, Coordination Retraining Other Recommendations and Next Treatment long distance ambulation, Focus stair climbing, dynamic gait index Recommendations To Nursing Amount of Assist Needed Standby Assistance Discharge Recommendations PT Discharge Recommendations Home Transportation Needs at Discharge Private Vehicle
[2020-08-08] MEDS: ATORVASTATIN 20 MG TABLET 80 MG PO (20:54)
[2020-08-08] MEDS: SODIUM CHLORIDE 0.9% FLUSH 10 ML IV (20:55)
[2020-08-09] VITALS: BP 116/70; PULSE 42; RESP 12; TEMP 36.5; O2SAT 98
[2020-08-09 04:15] VITALS: BP 125/75; PULSE 45; RESP 16; TEMP 36.5; O2SAT 97
[2020-08-09] MEDS: ACETAMINOPHEN 325 MG TABLET 650 MG PO ×2 (04:16→13:42)
[2020-08-09 05:27] LABS: D Dimer 236 ng/mL (<230)
[2020-08-09 05:29] LABS: Add Manual Diff / Slide Review NO; BUN Creatinine Ratio 19.8 (6-22); Basophils Absolute Auto 0 /uL (0-100); Basophils Percent Auto 0.7 % (0-2); Blood Urea Nitrogen 20 mg/dL (9-20); Calcium 9.2 mg/dL (8.4-10.2); Carbon Dioxide 26 mmol/L (22-32); Chloride 106 mmol/L (98-107); Eosinophils Absolute Auto 300 /uL (0-450); Eosinophils Percent Auto 5.2 % (2-4); Estimated Glomerular Filt Rate > 60.0 mL/min (>60); Glucose 94 mg/dL (80-110); HEMOLYSIS < 15 (0-50); Hematocrit 43.2 % (41-53); Hemoglobin 14.7 g/dL (13.5-17.5); Lymphocytes Absolute Auto 1800 /uL (1100-4500); Lymphocytes Percent Auto 34.5 % (25-40); Mean Corpuscular Hemoglobin 32.1 PG (26-34); Mean Corpuscular Volume 94.5 fL (80-100); Monocytes Absolute Auto 600 /uL (0-900); Monocytes Percent Auto 10.9 % (3-14); Neutrophils Absolute Auto 2600 /uL (1500-7000); Neutrophils Percent Auto 48.7 % (50-75); Platelet Count 217 X10^3/uL (150-400); Potassium 4.2 mmol/L (3.4-5.1); Red Blood Cell Count 4.57 X10^6/uL (4.5-5.9); Red Cell Distribution Width 13.2 % (11.6-14.8); Sodium 137 mmol/L (137-145); White Blood Cell Count 5.3 X10^3/uL (4.5-11.0)
[2020-08-09 05:56] LABS: Hemoglobin A1C% w Est Avg Glu 4.9 % (4.0-6.0)
[2020-08-09 06:14] LABS: Thyroid Stimulating Hormone 5.88 uIU/mL (0.47-4.68)
[2020-08-09 07:50] VITALS: BP 114/74; PULSE 44; RESP 12; TEMP 36.2; O2SAT 96
--- NOTE | 2020-08-09 08:49 | PM.PN.1 ---
Subjective Subjective Date Patient Seen: 08/09/20 Time Patient Seen: 08:49 Interval history: Patient says he did okay last night. Did not sleep much at all. He is eating this morning good historian. Vision is still quite poor. He does not appreciate any hand finger arm numbness weakness. No difficulty with swallowing. Has had normal bowel movement urination. He has been a little bradycardic overnight. No significant abnormalities on telemetry monitoring. No signs symptoms of alcohol withdrawal at this point. Exam Vital Signs (past 8 hours): - 08/09/20 04:15 08/09/20 07:50 Temperature 97.7 F 97.2 F L Pulse Rate 45 L 44 L Respiratory Rate 16 12 Blood Pressure 125/75 114/74 Pulse Oximetry 97 96 Oxygen Delivery Method Room Air Oxygen Flow Rate 0 Narrative Exam Narrative: Gen.: Alert and oriented x3 no apparent distress. HEENT: NCAT tympanic membranes are clear nares are patent oral mucosa is moist no tonsillar hypertrophy neck is supple without lymphadenopathy no thyroid enlargement. Cardio: S1-S2 regular rate and rhythm no murmurs appreciated. Respiratory: Lungs are clear to auscultation no wheezes or crackles normal respiratory effort. Abdomen: Soft nontender no rebound or guarding no liver spleen enlargement no appreciable hernias Extremities: Full range of motion no appreciable weakness no cyanosis or edema. Neurologic: Grossly intact. Objective Labs Result Diagrams: 08/09/20 05:01 08/09/20 05:01 Labs: Laboratory Results - last 24 hr 08/08/20 08/08/20 08/08/20 10:05 10:05 10:05 WBC 6.6 RBC 4.99 Hgb 16.2 Hct 47.4 MCV 95.0 MCH 32.4 MCHC 34.2 RDW 13.2 Plt Count 229 Neut % (Auto) 50.6 Lymph % (Auto) 34.3 [place] % (Auto) 10.8 Eos % (Auto) 3.8 Baso % (Auto) 0.5 Neut # (Auto) 3300 Lymph # (Auto) 2300 [place] # (Auto) 700 Eos # (Auto) 300 Baso # (Auto) 0 PT 11.0 INR 1.0 APTT 31 D-Dimer Sodium 137 Potassium 4.2 Chloride 103 Carbon Dioxide 26 BUN 15 Creatinine 1.08 Estimated GFR > 60.0 BUN/Creatinine Ratio 13.9 Glucose 95 Hemoglobin A1c Calcium 9.6 Total Bilirubin 1.0 AST 40 ALT 28 Alkaline Phosphatase 59 Total Creatine Kinase 87 CK-MB (CK-2) TNP CK-MB (CK-2) Rel Index TNP Troponin I < 0.012 Total Protein 7.6 Albumin 4.4 Globulin 3.2 Albumin/Globulin Ratio 1.4 TSH COVID-19 PCR 08/08/20 08/09/20 08/09/20 11:33 05:01 05:01 WBC 5.3 RBC 4.57 Hgb 14.7 Hct 43.2 MCV 94.5 MCH 32.1 MCHC 34.0 RDW 13.2 Plt Count 217 Neut % (Auto) 48.7 L Lymph % (Auto) 34.5 [place] % (Auto) 10.9 Eos % (Auto) 5.2 H Baso % (Auto) 0.7 Neut # (Auto) 2600 Lymph # (Auto) 1800 [place] # (Auto) 600 Eos # (Auto) 300 Baso # (Auto) 0 PT INR APTT D-Dimer 236 H Sodium Potassium Chloride Carbon Dioxide BUN Creatinine Estimated GFR BUN/Creatinine Ratio Glucose Hemoglobin A1c Calcium Total Bilirubin AST ALT Alkaline Phosphatase Total Creatine Kinase CK-MB (CK-2) CK-MB (CK-2) Rel Index Troponin I Total Protein Albumin Globulin Albumin/Globulin Ratio TSH COVID-19 PCR Negative 08/09/20 08/09/20 08/09/20 05:01 05:01 05:01 WBC RBC Hgb Hct MCV MCH MCHC RDW Plt Count Neut % (Auto) Lymph % (Auto) [place] % (Auto) Eos % (Auto) Baso % (Auto) Neut # (Auto) Lymph # (Auto) [place] # (Auto) Eos # (Auto) Baso # (Auto) PT INR APTT D-Dimer Sodium 137 Potassium 4.2 Chloride 106 Carbon Dioxide 26 BUN 20 Creatinine 1.01 Estimated GFR > 60.0 BUN/Creatinine Ratio 19.8 Glucose 94 Hemoglobin A1c 4.9 Calcium 9.2 Total Bilirubin AST ALT Alkaline Phosphatase Total Creatine Kinase CK-MB (CK-2) CK-MB (CK-2) Rel Index Troponin I Total Protein Albumin Globulin Albumin/Globulin Ratio TSH 5.88 H COVID-19 PCR Assessment & Plan Assessment & Plan narrative: Right frontal temporal CVA acute with visual loss. Confirmed by MRI and CT scan. Echocardiogram normal carotid ultrasound normal his CT and MR angiogram shows no significant plaquing. Unsure if this is embolic verses atherosclerotic. Will continue with telemetry monitoring today. He will have evaluation by speech therapy and occupational therapy. He will be continued on aspirin I think this is appropriate anticoagulation for the patient at this time he will be continued on his high-dose statin medication. Monitor closely his blood pressure for signs of significant hypertension but would not treat if a above 180 systolic. Whole hold his beta-petra that he was given yesterday due to bradycardia. He continues to progress and improved today. Anticipate discharge tomorrow. Hypertension new. Normal blood pressure. Allow for elevated blood pressure in acute status of his stroke. And will being slowly down his an outpatient Bradycardia. Patient is bradycardic. Check EKG today. Not sure if this is due to beta-petra use or underlying sign symptom. Echocardiogram is normal. Hyperlipidemia. Continue with his statin medication Alcohol dependence. Watch for withdrawal signs and symptoms per protocol. Hypothyroidism. TSH is elevated. Will monitor and recheck his TSH outpatient here in a few months to see if this is something worth evaluating and treating or if subclinical. DVT prophylaxis. Patient will be placed on Lovenox. Disposition and plan. Remain in patient today. Will work with speech therapy occupational therapy nutritional evaluation and discussion. And potential discharge tomorrow Quality VTE Deep Vein Thrombosis/Pulmonary Embolism Present on Admission: No
[2020-08-09] MEDS: FOLIC ACID 1 MG TABLET PO (09:26)
[2020-08-09] MEDS: THIAMINE 100 MG TABLET PO (09:26)
[2020-08-09] MEDS: MULTIVITAMIN 1 TABLET 1 TAB PO (09:26)
[2020-08-09] MEDS: ASPIRIN EC 325 MG TABLET PO (09:26)
[2020-08-09] MEDS: ENOXAPARIN 40 MG/0.4 ML SYRINGE SUBCUT (09:27)
[2020-08-09] MEDS: SODIUM CHLORIDE 0.9% FLUSH 10 ML IV (09:27)
--- NOTE | 2020-08-09 09:32 | PT.IPTN ---
Current Diagnoses Cerebral infarction, unspecified (08/08/20) Physical Therapy Treatment Note M2 PT-IP Current Condition Start: 08/08/20 17:29 Freq: NEEDED Status: Active Protocol: Document 08/08/20 15:35 AB (Rec: 08/08/20 17:51 AB [id number]) Physical Therapy Current Condition Current Condition Evaluation Date 08/08/20 Treatment Diagnosis CVA; difficulty in walking Onset Date 08/08/20 M3 PT-IP Subjective Start: 08/08/20 17:29 Freq: NEEDED Status: Active Protocol: Document 08/09/20 08:57 KS (Rec: 08/09/20 11:38 KS [id number]) Subjective Physical Therapy Visit Type Type Treatment Note Visit Start Time 08:57 Visit Stop Time 09:32 Total Visit Minutes 35 Number of AUTOMATED TELLER MANAGER Visits 1 Physical Therapy Visit Comments Patient Comments pt is agreeable to do PT M4 PT-IP Mobility and Gait Start: 08/08/20 17:29 Freq: NEEDED Status: Active Protocol: Document 08/09/20 08:57 KS (Rec: 08/09/20 11:38 KS [id number]) PT-Bed Mobility Assessment Rolling Type of Rolling Roll to Left Level of Assist Independent Supine to Sit Supine to Sit Independent Sit to Supine Sit to Supine Independent Scooting Scooting to Edge of Bed Independent PT-Transfer Assessment Sit to and From Stand Sit to and from Stand Standby Assistance Equipment Transfer Assistive Device Gait Belt Orthotic/Prosthetic Devices or Brace: No Transfers Transfer Destination Bed Transfer Technique pt ambulated w/o AD Transfer Ability Level of Assist Standby Assistance Comments Mobility Comments Pt continues to be I for bed mobility and SBA for sit<> stand. Completed Dynamic Gait Index w/ patient who scored 23 /24 indicating pt is a safe ambulator w/o AD. -1 pt for slight variations in gait during vertical head turns. In total, pt ambulated ~700 ft w /o AD SBA. Pt ambulated safely and was able to avoid obstacles. Pt noted slight dizziness w/ vertical head turns, but had no LOB. Pt ascended/descended 6 steps w/o handrails and step over step pattern w/o cues SBA. Pt then ambulated back to room and stand<>sit SBA, sit<>sup I. Pt left in room w/ RN and all needs in reach. Gait Assessment Gait Gait Assistance Required: Standby Assistance Distance (Feet) 700 Able to Maintain Weight Bearing Status Yes During Gait Assistive Devices Assistive Device None,Gait Belt Orthotic/Prosthetic Devices or Brace: No Gait Deviations General Gait Pattern Within Normal Limits Factors Limiting Gait Function Factors Limiting Gait Function Decreased Activity Tolerance Comments Gait Comments Pt completed DGI and scored 23 /24 points indicating pt is safe ambulator w/o AD, 2/3 points given for gait w/ vertical head turn d/t minor impairment/slight change in gait speed. Pt noted slight dizziness when looking up. Pt ambulated ~700 ft total SBA w/ o AD without any LOB and able to avoid all obstacles appropriately. Stair Climbing Assessment Evaluation Level of Assist On Stairs Standby Assistance,1 Person Assistance Devices Stair Climbing Assistive Devices None Technique/Endurance Stair Climbing Direction Ascend and Descend Stair Climbing Technique Step Over Step Number of Steps Climbed 3 Stair Climbing Set # Repetitions (reps) 2 Comments Stair Climbing Comments Pt ascended/descended 3 steps x2 w/o handrails, SBA and step over step pattern. Pt denied dizziness or fatigue while performing steps. PT-Balance Assessment Sitting Balance and Reactions Static Sitting Balance Ability Normal Dynamic Sitting Balance Ability Normal Standing Balance and Reactions Static Standing Balance Ability Normal Dynamic Standing Balance Ability Good Device Used without AD Functional Assessments Functional Tests Dynamic Gait Index Total score:23/24 Pt is safe ambulator w/o AD M5 PT-IP Objective Assessments Start: 08/08/20 17:29 Freq: NEEDED Status: Active Protocol: Document 08/08/20 15:35 AB (Rec: 08/08/20 17:51 AB [id number]) Orientation Orientation/Cognition Level of Alertness Alert Orientation Name,Age,Birthday,Month,Date, Year,Day of Week,Place, Situation Language Function Ability No Deficits Noted Safety Awareness Understands Safety Issues Memory Description No Deficits Noted Gross Range of Motion Lower Extremity ROM Assessment Within Functional Limits Strength Lower Extremity Strength Assessment Within Functional Limits Sensation Assessment Sensation Gross Sensation WNL Muscle Tone Muscle Tone WNL Yes M6 PT-IP Treatment Start: 08/08/20 17:29 Freq: NEEDED Status: Active Protocol: Document 08/09/20 08:57 KS (Rec: 08/09/20 11:38 KS [id number]) Physical Therapy Treatment Education Education Provided Safety M7 PT-IP Assessment and Plan Start: 08/08/20 17:29 Freq: NEEDED Status: Active Protocol: Document 08/09/20 08:57 KS (Rec: 08/09/20 11:38 KS [id number]) PT Summary Assessment and Plan Potential Rehabilitation Potential Good Status of Condition at Evaluation Stable Summary Impairments Balance,Coordination,Transfers ,Gait,Activity Tolerance Progress Towards Goals Progressing Toward Goals Assessment Summary Pt continues to be I w/ bed mobility and is SBA for transfers, ambulation and stairs for safety d/t impaired vision. Pt completed DGI scoring 23/24 indicating pt is safe ambulator w/o AD. Pt ambulated total ~700 ft w/o AD and no LOB or c/o dizziness or fatigue. Pt ascended/ descended 6 total steps SBA w/ o BHR and step over step pattern. Pt demonstrated good safety awareness during ambulation and stairs. Pt will benefit from continued skilled rehab to improve balance. Goals Transfer Goal Independent Gait Goal Independent Gait Distance 300 Other Goals up/down 6 steps without rails SBA Dynamic Gait indes: goal of - score Days to Meet Goals 3 Frequency of Treatment Frequency Of Treatment Once a Day Treatment Plan Physical Therapy Treatment Plan Transfer Training,Gait Training,Therapeutic Exercise, Balance Retraining,Discharge Planning,Neuromuscular Re-ed, Coordination Retraining Other Recommendations and Next Treatment balance training Focus Recommendations To Nursing Amount of Assist Needed Standby Assistance Discharge Recommendations PT Discharge Recommendations Home Transportation Needs at Discharge Private Vehicle
--- NOTE | 2020-08-09 09:32 | PT.IPTN ---
Current Diagnoses Cerebral infarction, unspecified (08/08/20) Physical Therapy Treatment Note M2 PT-IP Current Condition Start: 08/08/20 17:29 Freq: NEEDED Status: Active Protocol: Document 08/08/20 15:35 AB (Rec: 08/08/20 17:51 AB [id number]) Physical Therapy Current Condition Current Condition Evaluation Date 08/08/20 Treatment Diagnosis CVA; difficulty in walking Onset Date 08/08/20 M3 PT-IP Subjective Start: 08/08/20 17:29 Freq: NEEDED Status: Active Protocol: Document 08/09/20 08:57 KS (Rec: 08/09/20 11:38 KS [id number]) Subjective Physical Therapy Visit Type Type Treatment Note Visit Start Time 08:57 Visit Stop Time 09:32 Total Visit Minutes 35 Number of ASSISTANT DEPARTMENT MANAGER Visits 1 Physical Therapy Visit Comments Patient Comments pt is agreeable to do PT M4 PT-IP Mobility and Gait Start: 08/08/20 17:29 Freq: NEEDED Status: Active Protocol: Document 08/09/20 08:57 KS (Rec: 08/09/20 11:38 KS [id number]) PT-Bed Mobility Assessment Rolling Type of Rolling Roll to Left Level of Assist Independent Supine to Sit Supine to Sit Independent Sit to Supine Sit to Supine Independent Scooting Scooting to Edge of Bed Independent PT-Transfer Assessment Sit to and From Stand Sit to and from Stand Standby Assistance Equipment Transfer Assistive Device Gait Belt Orthotic/Prosthetic Devices or Brace: No Transfers Transfer Destination Bed Transfer Technique pt ambulated w/o AD Transfer Ability Level of Assist Standby Assistance Comments Mobility Comments Pt continues to be I for bed mobility and SBA for sit<> stand. Completed Dynamic Gait Index w/ patient who scored 23 /24. -1 pt for slight variations in gait during vertical head turns. In total, pt ambulated ~700 ft w/o AD SBA. Pt ambulated safely and was able to avoid obstacles. Pt noted slight dizziness w/ vertical head turns, but had no LOB. Pt ascended/descended 6 steps w/o handrails and step over step pattern w/o cues SBA. Pt then ambulated back to room and stand<>sit SBA, sit< >sup I. Pt left in room w/ RN and all needs in reach. Gait Assessment Gait Gait Assistance Required: Standby Assistance Distance (Feet) 700 Able to Maintain Weight Bearing Status Yes During Gait Assistive Devices Assistive Device None,Gait Belt Orthotic/Prosthetic Devices or Brace: No Gait Deviations General Gait Pattern Within Normal Limits Factors Limiting Gait Function Factors Limiting Gait Function Decreased Activity Tolerance Comments Gait Comments Pt completed DGI and scored 23 /24 points, 2/3 points given for gait w/ vertical head turn d/t minor impairment/slight change in gait speed. Pt noted slight dizziness when looking up. Pt ambulated ~700 ft total SBA w/o AD without any LOB and able to avoid all obstacles appropriately. Stair Climbing Assessment Evaluation Level of Assist On Stairs Standby Assistance,1 Person Assistance Devices Stair Climbing Assistive Devices None Technique/Endurance Stair Climbing Direction Ascend and Descend Stair Climbing Technique Step Over Step Number of Steps Climbed 3 Stair Climbing Set # Repetitions (reps) 2 Comments Stair Climbing Comments Pt ascended/descended 3 steps x2 w/o handrails, SBA and step over step pattern. Pt denied dizziness or fatigue while performing steps. PT-Balance Assessment Sitting Balance and Reactions Static Sitting Balance Ability Normal Dynamic Sitting Balance Ability Normal Standing Balance and Reactions Static Standing Balance Ability Normal Dynamic Standing Balance Ability Good Device Used without AD Functional Assessments Functional Tests Dynamic Gait Index Total score:23/24 Gait w/ vertical head turns:2/3 M5 PT-IP Objective Assessments Start: 08/08/20 17:29 Freq: NEEDED Status: Active Protocol: Document 08/08/20 15:35 AB (Rec: 08/08/20 17:51 AB [id number]) Orientation Orientation/Cognition Level of Alertness Alert Orientation Name,Age,Birthday,Month,Date, Year,Day of Week,Place, Situation Language Function Ability No Deficits Noted Safety Awareness Understands Safety Issues Memory Description No Deficits Noted Gross Range of Motion Lower Extremity ROM Assessment Within Functional Limits Strength Lower Extremity Strength Assessment Within Functional Limits Sensation Assessment Sensation Gross Sensation WNL Muscle Tone Muscle Tone WNL Yes M6 PT-IP Treatment Start: 08/08/20 17:29 Freq: NEEDED Status: Active Protocol: Document 08/09/20 08:57 KS (Rec: 08/09/20 11:38 KS [id number]) Physical Therapy Treatment Education Education Provided Safety M7 PT-IP Assessment and Plan Start: 08/08/20 17:29 Freq: NEEDED Status: Active Protocol: Document 08/09/20 08:57 KS (Rec: 08/09/20 11:38 KS [id number]) PT Summary Assessment and Plan Potential Rehabilitation Potential Good Status of Condition at Evaluation Stable Summary Impairments Balance,Coordination,Transfers ,Gait,Activity Tolerance Progress Towards Goals Progressing Toward Goals Assessment Summary Pt continues to be I w/ bed mobility and is SBA for transfers, ambulation and stairs for safety d/t impaired vision. Pt completed DGI scoring . Pt ambulated total ~700 ft w/o AD and no LOB or c/o dizziness or fatigue. Pt ascended/descended 6 total steps SBA w/o BHR and step over step pattern. Pt demonstrated good safety awareness during ambulation and stairs. Goals Transfer Goal Independent Gait Goal Independent Gait Distance 300 Other Goals up/down 6 steps without rails SBA Dynamic Gait indes: goal of - score Days to Meet Goals 3 Frequency of Treatment Frequency Of Treatment Once a Day Treatment Plan Physical Therapy Treatment Plan Transfer Training,Gait Training,Therapeutic Exercise, Balance Retraining,Discharge Planning,Neuromuscular Re-ed, Coordination Retraining Other Recommendations and Next Treatment long distance ambulation, Focus stair climbing Recommendations To Nursing Amount of Assist Needed Standby Assistance Discharge Recommendations PT Discharge Recommendations Home Transportation Needs at Discharge Private Vehicle
--- NOTE | 2020-08-09 10:32 | OT.IP.EVAL ---
Current Diagnoses Cerebral infarction, unspecified (08/08/20) Past Medical History (Last Reviewed 08/08/20 @ 10:35 by Zenia Nielson DO) Patient denies medical problems (Acute) Occupational Therapy Inpatient Evaluation/Re-Eval M1 PT/OT-IP Prior Functional Status Start: 08/08/20 17:29 Freq: NEEDED Status: Active Protocol: Document 08/09/20 12:43 CGR (Rec: 08/09/20 13:02 CGR [email or web address]) Medical Review Prior Functional Status Medical History Reviewed Yes Communication able to make needs known Mobility and Gait pt stated that he is independent with all mobilities and ambulation without AD; pt stated that he works out and can lift 115# weights Activities of Daily Living and IADL's Pt was IND in all ADLs and IADLs including driving. Social History Household Members spouse Living Arrangements House Number of Floors (Floors) One Floor Number of Stairs To Enter/Railing? no steps to enter Home Environment Standard Height Toilet,Walk in Shower,Built-In Shower Seat Home Equipment Straight Cane Employment Status Retired Additional Social History Comment Pt is a retired physical therapist. M2 OT-IP Current Condition Start: 08/09/20 12:43 Freq: Status: Active Protocol: Document 08/09/20 12:43 CGR (Rec: 08/09/20 13:02 CGR [email or web address]) Occupational Therapy Current Condition Current Condition Evaluation Date 08/09/20 Treatment Diagnosis L hemianopsia s/p R frontotemporal CVA Diagnosis Onset Date 08/08/20 M3 OT- IP Subjective and Pain Start: 08/09/20 12:43 Freq: Status: Active Protocol: Document 08/09/20 12:43 CGR (Rec: 08/09/20 13:02 CGR [email or web address]) OT- Subjective Occupational Therapy Visit Type Type Initial Evaluation Visit Start Time 09:50 Visit Stop Time 10:32 Total Visit Minutes 42 Notes Pt's is present throughout session OT Pain Assessment Pain When Pain Assessed At Rest Pain Present Pain Present Pain Reported Location headache Intensity 2 Scale Used Numeric (0 - 10) Management Techniques Distraction,Modification of Treatment,Re-positioning M4 OT- IP ADL's Start: 08/09/20 12:43 Freq: Status: Active Protocol: Document 08/09/20 12:43 CGR (Rec: 08/09/20 13:02 CGR [email or web address]) OT ICN-Vizt-Ekfilul General Evaluation Self-Feeding Ability Independent Comments OT Self-Feeding Comments for drinking coffee. OT ADL-Grooming General Evaluation Grooming Ability Independent OT ADL-Oral Care General Eval Oral Care Ability Independent Comments Oral Care Comments standing at sink OT ADL-Dressing General Eval Lower Body Dressing Ability Independent Areas Needing Assistance Socks OT ADL-Toileting General Evaluation Toileting Ability Independent Comments OT Toileting Comments simulated seated on the toilet OT ADL-Bathing Comments OT Bathing Comments not performed in this session. M5 OT- IP IADL's Start: 08/09/20 12:43 Freq: Status: Active Protocol: Document 08/09/20 12:43 CGR (Rec: 08/09/20 13:02 CGR [email or web address]) OT-Instrumental Activities of Daily Living Deficits IADL Deficits Identified No Deficits Home Safety Awareness Awareness of Need for Assistance at Home Good Awareness Ability to Problem Solve Emergency Able to Problem Solve Situations Medication Management Medication Management No Deficits Identified Money Management Money Management No Deficits Identified Meal Preparation Meal Preparation No Deficits Identified Casino Manager Casino Manager No Deficits Identified Driving Driving Concerns Identified Regarding Safety Driving Comments Discussed how driving is not safe while he is missing his left field of vision. M6 OT- IP Functional Cognition Start: 08/09/20 12:43 Freq: Status: Active Protocol: Document 08/09/20 12:43 CGR (Rec: 08/09/20 13:02 CGR [email or web address]) Cognitive Factors Limiting Selfcare Function Cognitive Ability Level of Alertness Alert Patient Orientation Name,Age,Birthday,Month,Date, Year,Day of Week,Place, Situation Attention Span Ability Capable of Focused Attention, Capable of Sustained Attention Ability to Follow Commands Able to Follow Multi-Step Commands Memory Description No Deficits Noted Safety Awareness No Deficits Noted Problem Solving Ability No deficits Noted Executive Function Ability No Deficits Noted Abstract Thinking Ability No Deficits Noted OT- Vision and Hearing OT- Hearing Assessment OT- Hearing Assessment WFL OT- Vision Assessment Visual Acuity Glasses For Reading Vision Assessment Comments Pt with L hemianopsia. Pt participated in trail making with the following scores: Part A: 2 minutes and 23 seconds Part B: 2 minutes M7 OT- IP Mobility and Balance Start: 08/09/20 12:43 Freq: Status: Active Protocol: Document 08/09/20 12:43 CGR (Rec: 08/09/20 13:02 CGR [email or web address]) OT- Bed Mobility Assessment Rolling Type of Rolling Roll to Left Level of Assistance Independent Supine to Sit Supine to Sit Assist Independent Sit to Supine Sit to Supine Assist Independent Scooting Scooting to Edge of Bed Independent OT-Transfer Assessment Sit to and From Stand Sit to and from Stand Independent Transfers Transfer Ability Independent Technique Transfer Destination Bed,Chair,Toilet Transfer Technique Stand Step Pivot Devices Transfer Assistive Devices Bed Rail Comments Mobility Comments mobility around the room. OT- Gait Assessment Gait Gait Assistance Required: Independent Assistive Devices Assistive Device Gait Belt Comments Gait Ability Comments mobility around the room. OT- Balance Assessment Sitting Balance and Reactions Static Sitting Balance Ability Normal Dynamic Sitting Balance Ability Normal M8 OT- IP Objective Assessments Start: 08/09/20 12:43 Freq: Status: Active Protocol: Document 08/09/20 12:43 CGR (Rec: 08/09/20 13:02 CGR [email or web address]) OT Gross Range of Motion Upper Extremity Range of Motion Assessment Within Functional Limits OT Strength Upper Extremity Strength Assessment Within Functional Limits OT- Coordination Assessment Upper Extremity Finger to Nose Test Within Functional Limits Finger Tapping Test Within Functional Limits OT-Muscle Tone Assessment Muscle Tone WNL Yes OT Sensation Assessment Edema Edema Absent M9 OT- IP Assessment and Plan Start: 08/09/20 12:43 Freq: Status: Active Protocol: Document 08/09/20 12:43 CGR (Rec: 08/09/20 13:02 CGR [email or web address]) OT Summary Assessment and Plan Potential Rehabilitation Potential Excellent Analytic Complexity at Evaluation Low Summary Progress Towards Goals Progressing Toward Goals Assessment Summary Pt presents as a low complexity evaluation s/p CVA with L hemianopsia. Pt is IND for ADLs and mobility but will benefit from visual therapy. Educated pt on exercises that he can do without therapy and recommended further therapy with a vision therapist. Goals OT-Other Goals Pt will decrease his trail making testing score to under 1 minute and 30 seconds. Days to Meet Goals 5 Frequency of Treatment Frequency Of Treatment Once a Day Treatment Plan OT Treatment Plan Vision Retraining Other Treatment Recommendations and Next follow up with trail making Treatment Focus Discharge Recommendations OT Discharge Recommendations Home Other Discharge Recommendations No driving. Transportation Needs at Discharge Private Vehicle
[2020-08-09 12:46] VITALS: BP 121/73; PULSE 50; RESP 13; TEMP 36.5; O2SAT 98
--- NOTE | 2020-08-09 14:20 | PC.NURSE ---
Pt resting in bed. He has been cleared by PT and OT and states he would like to go home. States he still has a left visual field deficit and mild 3/10 headache for which he received Tylenol. Dr. Avila paged regarding Pt's wish to discharge.
--- NOTE | 2020-08-09 15:06 | PM.DS.1 ---
History of Present Illness History of Present Illness Chief complaint: SENT FROM [facility] PER PHYS Discharge Providers Provider Date of admission: 08/08/20 11:22 Discharge Date: 08/10/20 Primary care physician: Virgie Patel MD Consults: 08/08/20 12:43 Consult to Discharge Planning Routine Comment: Consult to Occupational Therapy Evaluate & Treat Comment: Physician Instructions: Evaluate and treat Consult to Physical Therapy Evaluate & Treat Comment: Physician Instructions: Evaluate and Treat Consult to Speech Therapy Evaluate & Treat Comment: Physician Instructions: Evaluate and treat 08/08/20 17:38 Consult to Dietitian, Adult Routine Comment: Reason For Exam: alcohol dependence Discharge provider: Armond Avila MD Summary Hospital Course Discharge Diagnosis: 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 Hospital course and treatment rendered. Patient had further workup and evaluation is of a his acute CVA with carotid ultrasound echocardiogram MRI. Patient was found a have an up acute cerebrovascular accident. Does not appear to be embolic in more likely atherosclerotic. Patient remained in normal sinus rhythm throughout his hospital stay with some beta cardia. Had a normal echocardiogram. On day 2 we was eating ambulating no problems with coordination. Still had his visual field defect. Patient was requesting to be him go go home. He was evaluated by speech therapy occupational therapy and was cleared for discharge. Exam Vital Signs (past 8 hours): - 08/09/20 07:50 08/09/20 12:46 Temperature 97.2 F L 97.7 F Pulse Rate 44 L 50 L Respiratory Rate 12 13 Blood Pressure 114/74 121/73 Pulse Oximetry 96 98 Oxygen Delivery Method Room Air Oxygen Flow Rate 0 Objective Labs Result Diagrams: 08/09/20 05:01 08/09/20 05:01 Labs: Laboratory Results - last 24 hr 08/09/20 08/09/20 08/09/20 05:01 05:01 05:01 WBC 5.3 RBC 4.57 Hgb 14.7 Hct 43.2 MCV 94.5 MCH 32.1 MCHC 34.0 RDW 13.2 Plt Count 217 Neut % (Auto) 48.7 L Lymph % (Auto) 34.5 [place] % (Auto) 10.9 Eos % (Auto) 5.2 H Baso % (Auto) 0.7 Neut # (Auto) 2600 Lymph # (Auto) 1800 [place] # (Auto) 600 Eos # (Auto) 300 Baso # (Auto) 0 D-Dimer 236 H Sodium 137 Potassium 4.2 Chloride 106 Carbon Dioxide 26 BUN 20 Creatinine 1.01 Estimated GFR > 60.0 BUN/Creatinine Ratio 19.8 Glucose 94 Hemoglobin A1c Calcium 9.2 TSH 08/09/20 08/09/20 05:01 05:01 WBC RBC Hgb Hct MCV MCH MCHC RDW Plt Count Neut % (Auto) Lymph % (Auto) [place] % (Auto) Eos % (Auto) Baso % (Auto) Neut # (Auto) Lymph # (Auto) [place] # (Auto) Eos # (Auto) Baso # (Auto) D-Dimer Sodium Potassium Chloride Carbon Dioxide BUN Creatinine Estimated GFR BUN/Creatinine Ratio Glucose Hemoglobin A1c 4.9 Calcium TSH 5.88 H Discharge Plan Discharge Plan Patient Disposition: Home Discharge orders & Medications Prescriptions: New aspirin 325 mg Tablet,Delayed Release (Dr/Ec) 325 mg PO DAILY Qty: 30 RF: 0 atorvastatin [Lipitor] 80 mg tablet 80 mg PO BEDTIME Qty: 30 RF: 0 Follow up/Referrals: Virgie Patel MD [Primary Care Provider] - Diet/Activity/Treatments Diet: Diet as Tolerated Activity: Avoid heavy lifting until you talk with Dr Patel Visit Report/Discharge Packet Instructions: DI for Stroke-Ischemic, DI for Prescription Opioid Use, Atorvastatin, Aspirin, DI for Stroke-Intracerebral Hemorrhage Visit Report Forms: Patient Portal/API, Stroke Signs & Symptoms Discharge Data Primary Care Provider: Virgie Patel Discharges patient from system. Discharge Date/Time: 08/09/20 16:00 Quality VTE Deep Vein Thrombosis/Pulmonary Embolism Present on Admission: No
--- NOTE | 2020-08-09 16:13 | CM.DANOTE ---
Patient teaching done with patient and reveiwed with at her arrival for pickling drum operator. IV removed, and tele monitor removed. Patient req. to walk out to personal vehicle vs. using wheelchair. VSS at discharge, patient denies feeling lightheaded and/or dizzy w/ standing/walking. Patient left hospital in stable condition. Patient and aware to f/u with PCP and specialty providers (neuro).
--- NOTE | 2020-08-10 09:09 | CM.DANOTE ---
Discharge Planning/Care Management DCP: assessment: Late Entry: case received yesterday and discussed in Team Rounds. Pt is a 65 year old male who was admitted 08/[address] Patel/PCP after being referred from the [facility]. Payer: [facility] Admission status: INPT: confirmed by UR THUY Sarabia. Pt was diagnosed with a CVA and PT/OT were ordered. Due to caseload triage planned to check in with pt this morning. A check in now shows that pt did d/c to home setting after being cleared by therapists and will follow up on the continued visual changes in the OUTPT setting. CM Discharge Assessment Start: 08/10/20 09:08 Freq: Status: Discharge Protocol: Document 08/10/20 09:09 ITV (Rec: 08/10/20 09:09 IT [id number]) Discharge Planning Assessment Advance Directives? No History Provided By Medical Record Prior Living Arrangements House Household Members spouse
== END 2020-08-09 16:00 | disposition home or self-care (01) | DRG 66 ==
LOC: ED 11:07 → AC 11:24
PROVIDERS: Admitting Provider Student in an Organized Health Care Education/Training Program; Emergency Provider Emergency Medicine; PCP Student in an Organized Health Care Education/Training Program; Referring Provider Emergency Medicine; Visit Provider Student in an Organized Health Care Education/Training Program
DX: I63.9 Cerebral infarction, unspecified (principal); H54.62 Unqualified visual loss, left eye, normal vision right eye; R00.1 Bradycardia, unspecified; E78.5 Hyperlipidemia, unspecified; I10 Essential (primary) hypertension; F10.20 Alcohol dependence, uncomplicated; E03.9 Hypothyroidism, unspecified
CPT/HCPCS: 36415; 36592; 70450; 70496; 70498; 70548; 70553; 80048; 80053; 81003; 82550; 82962; 83036; 84443; 84484; 85025; 85379; 85610; 85730; 87635; 93005; 93010; 93306; 93880; 97116; 97161; 97165; 97530; 97535; 99238; 99285; J1650; Q9967

== ENCOUNTER → 2021-05-05 07:13 | Outpatient (CLI) | payer MEDICARE, SELFPAY ==
[2021-05-05 07:13] VITALS: BMI 25.0
[2021-05-05 08:54] LABS: Estimated Glomerular Filt Rate > 60.0 mL/min (>60)
== END ==
PROVIDERS: PCP Student in an Organized Health Care Education/Training Program; Referring Provider Psychiatry & Neurology Neurology; Visit Provider Psychiatry & Neurology Neurology
DX: Z13.9 Encounter for screening, unspecified (principal)
CPT/HCPCS: 36415; 82565